=== PATIENT | female | born 1970 ===

== ENCOUNTER 2016-04-07 23:29 | Emergency (ER) | payer OTHER ==
[~2016-04-07] VITALS: Ht 149.9 cm; Wt 57.2 kg
[2016-04-07 23:33] VITALS: Ht 149.9 cm; Wt 57.2 kg
[2016-04-08] MEDS ORDERED: PARO10TA26 PO (00:47)
[2016-04-08] MEDS ORDERED: ALPR0.25 PO (00:47)
--- NOTE | 2016-04-08 00:47 | ERD ---
ER Documentation Chief Complaint Date/Time DATE: 04/08/16 TIME: 00:45 Chief Complaint left lower leg laceration with metal fence x 30 minutes ago HPI 45 female presents here in emergency department for complaints of left lower leg laceration wound after being caught by a metal fence today. Patient described the pain as sharp pain, 6/10 scale, is worse upon touching the area, patient's laceration wound was bleeding Immediately afterwards. Patient denies any joint involvement. Patient is able to do full range of motion of the left ankle and left knee without any suction. Patient denies any foreign body sensation on the wound. Patient did not take any medications to help with symptoms. ROS All systems reviewed and are negative except as per history of present illness. Medications Home Meds Active Scripts Hydrocodone/Acetaminophen (Desoto 5-325 Tablet) 1 Each Tablet, 1 TAB PO Q6H Y for SEVERE PAIN LEVEL 7-10, #20 TAB Prov:WILLARD DESHPANDE [employer] 04/08/16 Ibuprofen* (Motrin*) 600 Mg Tab, 600 MG PO Q6H Y for PAIN AND OR ELEVATED TEMP, #30 TAB Prov:WILLARD DESHPANDE NP 04/08/16 Cephalexin* (Keflex*) 500 Mg Capsule, 500 MG PO QID for 5 Days, CAP Prov:WILLARD DESHPANDE [employer] 04/08/16 Reported Medications Alprazolam* (Xanax*) Unknown Strength Tablet, PO TID, TAB 04/08/16 Paroxetine Hcl* (Paxil*) Unknown Strength Tablet, PO DAILY, TAB 04/08/16 Allergies Allergies: Coded Allergies: Sulfa (Sulfonamide Antibiotics) (Verified Allergy, Unknown, rash, 04/08/16) PMhx/Soc Unknown last tetanus immunization Medical and Surgical Hx: pt denies Medical Hx, pt denies Surgical Hx Physical Exam Vitals Vital Signs Date Time Temp Pulse Resp B/P Pulse Ox O2 Delivery O2 Flow Rate FiO2 04/08/16 03:17 88 16 153/93 98 04/07/16 23:33 96.4 112 20 146/100 97 Physical Exam GENERAL: The patient is well developed and appropriate for usual state of health, in no apparent distress. CHEST: Clear to auscultation bilaterally. There are no rales, wheezes or rhonchi. HEART: Regular rate and rhythm. No murmurs, clicks, rubs or gallops. No S3 or S4. ABDOMEN: Soft, nontender and nondistended. Good bowel sounds. No rebound or guarding. No gross peritonitis. No gross organomegaly or masses. No Evans sign or McBurney point tenderness. BACK: No midline or flank tenderness. EXTREMITIES: Equal pulses bilaterally. There is no peripheral clubbing, cyanosis or edema. No focal swelling or erythema. Full range of motion. Grossly neurovascularly intact. NEURO: Alert and oriented. Cranial nerves 2-12 intact. Motor strength in all 4 extremities with 5/5 strength. Sensation grossly intact. Normal speech and gait. SKIN: Noted a 15 cm flap laceration wound that extends to the subcutaneous tissue, no tendon involvement, no muscle involvement noted, no foreign body noted in the left calf area. Just below it 1 cm laceration wound that extends up to the subcutaneous tissue was noted, no foreign body noted. There is no apparent rash or petechia. The skin is warm and dry. HEMATOLOGIC AND LYMPHATIC: There is no evidence of excessive bruising or lymphedema. No gross cervical, axillary, or inguinal lymphadenopathy. Results 24 hrs Current Medications Medications (Trade) Dose Ordered Sig/Katelin Route PRN Reason Start Time Stop Time Status Last Admin Dose Admin Diphtheria/ Tetanus/Acell Pertussis (Adacel) 0.5 ml ONCE ONCE IM* 04/08/16 01:00 04/08/16 01:01 DC 04/08/16 01:00 Acetaminophen/ Hydrocodone Bitart (Desoto (5/325)) 1 tab ONCE ONCE PO 04/08/16 01:00 04/08/16 01:01 DC 04/08/16 00:56 Alprazolam 1 mg 1 mg ONCE ONCE PO 04/08/16 01:00 04/08/16 01:01 DC 04/08/16 00:56 Cefazolin Sodium (Ancef 1 Gm/50 ml (Pmx)) 50 ml @ 100 mls/hr ONCE IVPB 04/08/16 01:30 04/08/16 01:59 DC 04/08/16 01:21 Ketorolac Tromethamine (Toradol) 30 mg ONCE STAT IV 04/08/16 02:52 04/08/16 02:54 DC 04/08/16 03:04 Patient was given medication for pain here in emergency department, after treatment, patient verbalized feeling much better. Patient's pain is improved.Tdap was given to prevent tetanus. Patient tolerated medication well. Because of the mechanism of injury and size of the wound, patient was given Ancef IV to prevent infection of affected area. PROCEDURE: LEFT TIBIA/FIBULAR - 2 VIEWS CLINICAL INDICATION: 45-year-old female with left lower extremity pain following laceration. TECHNIQUE: AP, lateral and oblique views of the left tibia and fibula were obtained. The images reviewed on a PACS workstation. COMPARISON: None. FINDINGS: There is normal mineralization and alignment. No fracture or osseous lesion is identified. The joints are unremarkable. There is evidence for soft tissue defect and infiltration within the posterior calf region. No radiopaque foreign body is seen. IMPRESSION: 1. No acute fracture or dislocation. 2. Soft tissue defect consistent with laceration. .Cooper Shipman MD, MD Date Time Electronically viewed and signed by .Cooper Shipman MD, MD on 04/08/2016 01:47 .M/ CC: WILLARD DESHPANDE [employer] Procedures/[facility] Procedure Note: After obtaining informed consent, the wound was irrigated with 250 ml of normal saline and cleaned with diluted betadine. Using aseptic technique, because of the size total of 10 ml of 1% lidocaine was injected on the subcutaneous tissue of the laceration wound for anesthetic. After the anesthetic, the wound was approximated using 21 interrupted sutures of 3-0 Prolene. The laceration wound just below it was sutured with 2 interrupted sutures of 3-0 Prolene. After the procedure, the wound was well approximated. Patient tolerated procedure well. Bacitracin was applied on the area and a dry dressing. Medical decision making: Patient has laceration wounds which was repaired without any difficulty. No foreign body, no tendon involvement, no muscular involvement noted. No foreign body noted in the area. The symptoms of vascular compromise. Patient was given prescription for Keflex to prevent infection, ibuprofen for mild to moderate pain, Desoto for severe pain, is advised to do wound check with primary care doctor in 2 days, suture removal in 10 days. Patient was advised to return to emergency department for any worsening symptoms. Patient was advised to elevated affected area, apply ice and affected area. Departure Diagnosis: Primary Impression: Leg laceration Encounter type: initial encounter Laterality: left Qualified Code: S81.812A - Leg laceration, left, initial encounter Condition: Stable Patient Instructions: Laceration, Extrem (Suture, Staple, Or Tape) Additional Instructions: atient was given prescription for Keflex to prevent infection, ibuprofen for mild to moderate pain, Desoto for severe pain, is advised to do wound check with primary care doctor in 2 days, suture removal in 10 days. Patient was advised to return to emergency department for any worsening symptoms. Patient was advised to elevated affected area, apply ice and affected area. WILLARD DESHPANDE NP Apr 08, 2016 00:47
[2016-04-08] MEDS ORDERED: DIPHTH/TET/ACEL PERTUSS (ADULT) 0.5 ML VIAL IM* ONE (01:00)
[2016-04-08] MEDS ORDERED: HYDROCODONE/APAP (5/325) TAB PO ONE (01:00)
[2016-04-08] MEDS ORDERED: ALPRAZOLAM 0.25 MG TAB PO ONE (01:00)
[2016-04-08] MEDS ORDERED: CEFAZOLIN 1 GM/50 ML (PMX) 50 ML IVPB SCH (01:30)
--- NOTE | 2016-04-08 01:47 | RADRPT ---
PROCEDURE: LEFT TIBIA/FIBULAR - 2 VIEWS CLINICAL INDICATION: 45-year-old female with left lower extremity pain following laceration. TECHNIQUE: AP, lateral and oblique views of the left tibia and fibula were obtained. The images re viewed on a PACS workstation. COMPARISON: None. FINDINGS: There is normal mineralization and alignment. No fracture or osseous lesion is identified. The joint s are unremarkable. There is evidence for soft tissue defect and infiltration within the posterior c stephane region. No radiopaque foreign body is seen. IMPRESSION: 1. No acute fracture or dislocation. 2. Soft tissue defect consistent with laceration. .Cooper Shipman MD, MD Date Time Electronically viewed and signed by .Cooper Shipman MD, on 04/08/2016 01:47 .Janak/
[2016-04-08] MEDS ORDERED: KETOROLAC 30 MG INJ IV STA (02:52)
[2016-04-08] MEDS ORDERED: CEPH-443 PO (02:58)
[2016-04-08] MEDS ORDERED: HYDR-906 PO (02:58)
[2016-04-08] MEDS ORDERED: IBUP-1542 PO (02:58)
[2016-04-08 03:17] VITALS: BP 153/93; PULSE 88; RESP 16
[2016-04-08] MEDS ORDERED: LIDOCAINE 1% (MDV) 20 ML INJ SC ONE (21:30)
== END 2016-04-08 03:20 | disposition home or self-care (01) ==
LOC: FTE 23:29
DX: S81.812A Laceration without foreign body, left lower leg, initial encounter (principal); W22.8XXA Striking against or struck by other objects, initial encounter; Y92.9 Unspecified place or not applicable; Z23 Encounter for immunization
CPT/HCPCS: 12005; 73590; 90471; 90715; 96374; 96375; 99284; J0690; J1885